=== PATIENT | female | born 1985 | race African-American/Black ===

== ENCOUNTER 2024-05-06 09:37 | Inpatient (IN) | payer OTHER ==
[2024-05-06 11:09] VITALS: BMI 29.7
[2024-05-06 11:17] VITALS: RESP 18
[2024-05-06] MEDS: ELECTROLYTE-148 SOLN 1,000 ML IV SCH (12:15)
[2024-05-06 12:41] LABS: BASO % 0.3 % (0-2.0); EOS % 0.6 % (0-4.5); HEMATOCRIT 35.4 % (32.4-45.2); HEMOGLOBIN 12.1 GM/dL (10.7-15.3); LYMPH % 23.8 % (8-40); MCH 25.4 pg (25.7-33.7); MCHC 34.1 g/dl (32.0-36.0); MEAN CELL VOLUME 74.6 fl (80-96); MONO % 6.7 % (3.8-10.2); NEUT % 68.6 % (42.8-82.8); PLATELET COUNT 245 10^3/uL (134-434); RBC 4.75 M/mm3 (3.60-5.2); WHITE BLOOD COUNT 8.4 K/mm3 (4.0-10.0)
[2024-05-06] MEDS: CITRIC ACID/SODIUM CITRATE 30 ML UNIT-DOSE CUP PO ONE (12:45)
[2024-05-06 12:49] LABS: INR 0.92 (0.83-1.09); PROTHROMBIN TIME (PATIENT) 10.6 SEC (9.7-13.0)
[2024-05-06 12:51] LABS: ACTIVATED PTT 24.6 SECONDS (25.2-36.5)
[2024-05-06] MEDS ORDERED: morphine SULFATE/PF 1 MG/2 ML (2cc Syringe - QUVA) ONE (12:53)
[2024-05-06] MEDS ORDERED: FENTANYL CITRATE/PF 50 MCG/ML VIAL ONE (12:53)
[2024-05-06 13:06] LABS: BLOOD UREA NITROGEN 8.1 mg/dL (7-18)
[2024-05-06 13:09] LABS: CREATININE 0.5 mg/dL (0.55-1.3)
[2024-05-06 13:36] LABS: SYPHILIS W/ RPR CONF NON-REACTIVE (NONREACTIVE)
[2024-05-06] MEDS ORDERED: ceFAZolin SODIUM 1 GM VIAL ONE (13:46)
[2024-05-06] MEDS ORDERED: ONDANSETRON 4 MG/2 ML VIAL ONE (13:51)
[2024-05-06] MEDS ORDERED: OXYTOCIN 20 UNITS in 0.9% NS 20 UNIT/1,000 ML INFUS.BAG IV ONE (14:48)
[2024-05-06] MEDS ORDERED: METHYLERGONOVINE MALEATE 0.2 MG/1 ML AMP IM PRN (14:58)
[2024-05-06] MEDS ORDERED: ACETAMINOPHEN 325 MG TABLET (FP) PO PRN (14:58)
[2024-05-06] MEDS ORDERED: IBUPROFEN 800 MG/8 ML IJ IVPB PRN (14:58)
[2024-05-06] MEDS: OXYTOCIN 20 UNITS in 0.9% NS 20 UNIT/1,000 ML INFUS.BAG IV SCH (15:00)
[2024-05-06] MEDS ORDERED: ACETAMINOPHEN 1000 MG/100 ML BAG IVPB PRN (15:03)
[2024-05-06] MEDS: ONDANSETRON 4 MG/2 ML VIAL IVPUSH PRN (19:12)
[2024-05-06 21:35] LABS: HIV INTERPRETATION NEGATIVE (NEGATIVE)
[2024-05-07] MEDS ORDERED: oxyCODONE HCL 5 MG TABLET PO PRN ×2 (02:58)
[2024-05-07 07:51] LABS: BASO % 0.4 % (0-2.0); EOS % 0.6 % (0-4.5); HEMATOCRIT 33.1 % (32.4-45.2); LYMPH % 11.4 % (8-40); MCH 25.3 pg (25.7-33.7); MCHC 33.2 g/dl (32.0-36.0); MEAN CELL VOLUME 76.2 fl (80-96); MEAN PLT VOLUME 9.1 fl (7.5-11.1); MONO % 5.7 % (3.8-10.2); NEUT % 81.9 % (42.8-82.8); PLATELET COUNT 233 10^3/uL (134-434); RBC 4.34 M/mm3 (3.60-5.2); WHITE BLOOD COUNT 12.8 K/mm3 (4.0-10.0)
[2024-05-07] MEDS: SIMETHICONE 80 MG TAB.CHEW (FP) PO PRN (09:34)
[2024-05-07] MEDS: PRENATAL VITAMINS W/ FOLIC ACID TABLET (FP) PO SCH (09:34)
[2024-05-07] MEDS: FERROUS SO4 325 MG TABLET (FP) PO SCH (09:34)
[2024-05-07] MEDS ORDERED: BISACODYL 10 MG SUPP.RECT RC PRN (14:58)
[2024-05-07] MEDS: SENNOSIDES/DOCUSATE COMBO (SENNA PLUS) TABLET (UD) PO PRN (22:14)
[2024-05-07] MEDS: IBUPROFEN 600 MG TABLET (FP) PO PRN (22:14)
[2024-05-09 00:55] VITALS: BP 131/89; PULSE 92; TEMP 98.4
== END 2024-05-09 12:55 | disposition home or self-care (01) | DRG 540 ==
LOC: JLDR 09:37 → J3W 17:03
PROVIDERS: ADMIT Obstetrics & Gynecology; ATTEND Obstetrics & Gynecology
PROC: 10D00Z1 Extraction of Products of Conception, Low, Open Approach (ICD-10-PCS; principal; 2024-05-06)
DX: O24.429 Gestational diabetes mellitus in childbirth, unspecified control (principal); O40.3XX0 Polyhydramnios, third trimester, not applicable or unspecified; O36.63X0 Maternal care for excessive fetal growth, third trimester, not applicable or unspecified; O48.0 Post-term pregnancy; Z3A.40 40 weeks gestation of pregnancy; Z37.0 Single live birth
CPT/HCPCS: 36415; 80048; 82962; 85025; 85610; 85730; 86780; 86803; 86850; 86900; 86901; 87389; 88307-TC; 94010